=== PATIENT | male | born 1995 | race Caucasian/White ===

== ENCOUNTER 2018-07-14 15:31 | Emergency (ER) | payer SELFPAY ==
[2018-07-14] MEDS ORDERED: LIDOCAINE 1% MPF 5 ML VIAL ONE (16:22)
[2018-07-14] MEDS ORDERED: TETANUS & DIPHTHERIA TOX,ADULT 0.5 ML VIAL ONE (16:24)
[2018-07-14] MEDS ORDERED: LIDOCAINE 1% W/EPI 1:100,000 MDV 50 ML VIAL ONE (16:24)
--- NOTE | 2018-07-14 17:18 | RAD REPORT ---
EXAM DESCRIPTION: RAD - Tib Fib Right - 07/14/2018 5:01 pm CLINICAL HISTORY: Leg trauma, soft tissue laceration COMPARISON: None. FINDINGS: Soft tissue wound is present anterior to the midshaft tibia. On 1 of the lateral views the re is a small oval density in the soft tissues. This is not seen on the other lateral view and neithe r of the frontal projections. Foreign body is doubtful. No fracture identified. No acute bone or joint finding. IMPRESSION: No fracture or other acute bone finding. Anterior soft tissue wound with no foreign body confirmed.
--- NOTE | 2018-07-14 18:10 | EDPHYS ---
Physician Documentation [facility] Name: Fan Richards Age: 22 yrs Sex: Male : 1995 Arrival Date: 07/14/2018 Time: 15:35 Bed 19 Private MD: None, None ED Physician Vikas Brito HPI: 07/14 16:15 This 22 yrs old Male presents to ER via Wheelchair with complaints of cp Laceration To Leg. 16:15 The patient has a laceration occurred outdoors, The injury was accidental, Patient cp reports he was chopping wood when he accidently struck lower right leg with ax. The laceration(s) is(are) located on the anterior aspect right lower leg. Onset: The symptoms/episode began/occurred just prior to arrival. Associated signs and symptoms: Pertinent negatives: heavy bleeding, numbness distal to injury, suspected foreign body. Historical: - Allergies: 16:04 No Known Allergies; sv - Home Meds: 16:04 None [Active]; sv - PMHx: 16:04 None; sv - PSHx: 16:04 None; sv - Immunization history:: Adult Immunizations up to date, Last tetanus immunization: unknown. - Social history:: Smoking status: Patient/guardian denies using tobacco, Patient/guardian denies using alcohol. - Ebola Screening: : No symptoms or risks identified at this time. ROS: 16:20 Constitutional: Negative for body aches, chills, fever, poor PO intake. cp 16:20 Eyes: Negative for injury, pain, redness, and discharge. cp 16:20 ENT: Negative for drainage from ear(s), ear pain, sore throat, difficulty swallowing, difficulty handling secretions. 16:20 Cardiovascular: Negative for chest pain, edema, palpitations. 16:20 Respiratory: Negative for cough, shortness of breath, wheezing. 16:20 Abdomen/GI: Negative for abdominal pain, nausea, vomiting, and diarrhea. 16:20 Skin: Positive for laceration(s), of the anterior aspect right lower leg. 16:20 Neuro: Negative for altered mental status, numbness, weakness. 16:20 All other systems are negative. Exam: 16:45 Constitutional: The patient appears in no acute distress, alert, awake, well developed, cp well nourished. 16:45 Head/Face: Normocephalic, atraumatic. cp 16:45 Eyes: Periorbital structures: appear normal, Conjunctiva: normal, no exudate, no injection, Lids and lashes: appear normal, bilaterally. 16:45 ENT: External ear(s): are unremarkable, Nose: is normal, Mouth: is normal, Posterior pharynx: is normal, airway is patent. 16:45 Chest/axilla: Inspection: normal, Palpation: is normal, no crepitus, no tenderness. 16:45 Cardiovascular: Rate: normal, Rhythm: regular. 16:45 Respiratory: the patient does not display signs of respiratory distress, Respirations: normal, no use of accessory muscles, no retractions, no splinting, no tachypnea, Breath sounds: are clear throughout, no decreased breath sounds, no stridor, no wheezing. 16:45 Abdomen/GI: Exam negative for discomfort, distension, guarding, Inspection: abdomen appears normal. 16:45 Back: pain, is absent, ROM is normal. 16:45 Musculoskeletal/extremity: ROM: full active range of motion, in the right ankle and foot, limited active range of motion due to pain, in the right foot, Perfusion: the extremity is normally perfused throughout, Sensation intact. Tendon exam: specific tendon testing normal through active and passive range of motion 16:45 Skin: injury, laceration(s), the wound is approximately 5 cm(s), of the anterior aspect right lower leg, that can be described as no foreign body, linear, with mild bleeding. Vital Signs: 15:55 BP 136 / 96; Pulse 65; Resp 18; Temp 98.5; Pulse Ox 98% ; Weight 74.84 kg; Height 5 ft. sv 8 in. (172.72 cm); 18:32 BP 133 / 75; Pulse 59; Resp 18; Temp 98.4; Pulse Ox 100% on R/A; gm 15:55 Body Mass Index 25.09 (74.84 kg, 172.72 cm) sv Laceration: 18:06 Wound Repair of 5cm ( 2.0in ) subcutaneous laceration to anterior aspect right lower cp leg. Linear shaped.. Distal neuro/vascular/tendon intact. Anesthesia: Wound infiltrated with 14 mls of Lido/Marcaine. Wound prep: Extensive cleansing by me, Wound irrigation by me, Wound explored extensively. Fascia closed with 8 4-0 Vicryl using simple sutures and sterile technique. Skin closed with 6 4-0 Prolene using horizontal mattress sutures and sterile technique. Dressed with Bacitracin, 4x4's, bhavesh wrap. Patient tolerated well. MDM: 15:55 Patient medically screened. cp 16:30 Differential diagnosis: superficial laceration, tendon injury, vascular injury. cp 18:08 Data reviewed: vital signs, nurses notes, radiologic studies, plain films. cp 18:08 Test interpretation: by ED physician or midlevel provider: plain radiologic studies. cp Counseling: I had a detailed discussion with the patient and/or guardian regarding: the historical points, exam findings, and any diagnostic results supporting the discharge/admit diagnosis, radiology results, the need for outpatient follow up, a family practitioner, to return to the emergency department if symptoms worsen or persist or if there are any questions or concerns that arise at home. Response to treatment: the patient's symptoms have markedly improved after treatment. 07/14 16:05 Order name: XRAY Tib Fib RIGHT; Complete Time: 18:02 07/14 18:03 Interpretation: Report reviewed. 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 Exp: sv 09/03/2020. Lot #: [id number]. } Route: IM; Site: right deltoid; 16:36 Follow up: Response: No adverse reaction sv 16:37 Drug: Lidocaine-Epinephrine -1%: (1:100,000) 5 ml {Note: given to Siddhartha PA .} Volume: sv 20 ml; Route: Infiltration; 16:37 Drug: Marcaine-Epinephrine (0.5 %) 5 ml {Note: given to Siddhartha PA.} Route: Infiltration; sv Disposition: 07/15 07:43 Co-signature as Attending Physician, Vikas Brito MD I agree with the assessment and kdr plan of care. Disposition: 07/14/18 18:09 Discharged to Home. Impression: Laceration without foreign body of lower leg - Right. - Condition is Stable. - Discharge Instructions: Laceration Care, Adult. - Prescriptions for Keflex 500 mg Oral Capsule - take 1 capsule by ORAL route every 8 hours for 10 days; 30 capsule. Tylenol- Codeine #3 300-30 mg Oral Tablet - take 2 tablets by ORAL route every 6 hours As needed; 12 tablet. Ibuprofen 800 mg Oral Tablet - take 1 tablet by ORAL route every 8 hours As needed take with food; 30 tablet. - Medication Reconciliation Form, Thank You Letter, Antibiotic Education, Prescription Opioid Use form. - Follow up: Private Physician; When: 10 - 14 days; Reason: Staple/Suture removal. - Problem is new. - Symptoms have improved. Signatures: Dispatcher [employer] Mylene Reece RN RN Vikas Almonte MD MD [facility] Siddhartha Rubio PA PA cp Corrections: (The following items were deleted from the chart) 07/14 18:07 18:05 Dressing - Wound ordered. cp sv 18:38 18:09 07/14/2018 18:09 Discharged to Home. Impression: Laceration without foreign body sv of lower leg - Right. Condition is Stable. Forms are Medication Reconciliation Form, Thank You Letter, Antibiotic Education, Prescription Opioid Use. Follow up: Private Physician; When: 10 - 14 days; Reason: Staple/Suture removal. Problem is new. Symptoms have improved. cp
--- NOTE | 2018-07-14 18:10 | ER ---
Nurse's Notes [facility] Name: Fan Richards Age: 22 yrs Sex: Male : 1995 Arrival Date: 07/14/2018 Time: 15:35 Bed 19 Private MD: None, None Diagnosis: Laceration without foreign body of lower leg-Right Presentation: 07/14 15:55 Presenting complaint: Patient states: laceration to the RLE with an axe, full thickness sv as reported by Rosalia Talley RN. Denies LOC. Transition of care: patient was not received from another setting of care. Complicating Factors: There are no complicating factors for this patient. Onset of symptoms was July 14, 2018. Risk Assessment: Do you want to hurt yourself or someone else? Patient reports no desire to harm self or others. Initial Sepsis Screen: Does the patient meet any 2 criteria? No. Patient's initial sepsis screen is negative. Does the patient have a suspected source of infection? No. Patient's initial sepsis screen is negative. Care prior to arrival: None. 15:55 Method Of Arrival: Wheelchair sv 15:55 Acuity: DAYSI 3 sv Historical: - Allergies: 16:04 No Known Allergies; sv - Home Meds: 16:04 None [Active]; sv - PMHx: 16:04 None; sv - PSHx: 16:04 None; sv - Immunization history:: Adult Immunizations up to date, Last tetanus immunization: unknown. - Social history:: Smoking status: Patient/guardian denies using tobacco, Patient/guardian denies using alcohol. - Ebola Screening: : No symptoms or risks identified at this time. Screenin:55 Abuse screen: Denies threats or abuse. Denies injuries from another. Nutritional sv screening: No deficits noted. Tuberculosis screening: No symptoms or risk factors identified. Fall Risk None identified. Assessment: 16:10 General: Appears in no apparent distress. uncomfortable, slender, well developed, sv Behavior is calm, cooperative, appropriate for age. Pain: Complains of pain in right leg. Neuro: Level of Consciousness is awake, alert, obeys commands, Oriented to person, place, time, situation, Moves all extremities. Full function Gait is steady, Speech is normal. Respiratory: Airway is patent Respiratory effort is even, unlabored, Respiratory pattern is regular, symmetrical. Derm: Skin is pink, warm \T\ dry. Musculoskeletal: Range of motion: intact in all extremities. Injury Description: Laceration sustained to right killian is contaminated, 2.6 to 7.5 cm long, was sustained 30-60 minutes ago. is bleeding a small amount. 17:10 Reassessment: Patient appears in no apparent distress at this time. No changes from sv previously documented assessment. Patient and/or family updated on plan of care and expected duration. Pain level reassessed. Patient is alert, oriented x 3, equal unlabored respirations, skin warm/dry/pink. 18:37 Reassessment: Patient appears in no apparent distress at this time. Patient and/or sv family updated on plan of care and expected duration. Pain level reassessed. Patient is alert, oriented x 3, equal unlabored respirations, skin warm/dry/pink. Patient denies pain at this time. Patient states feeling better. Patient states symptoms have improved. Vital Signs: 15:55 BP 136 / 96; Pulse 65; Resp 18; Temp 98.5; Pulse Ox 98% ; Weight 74.84 kg; Height 5 ft. sv 8 in. (172.72 cm); 18:32 BP 133 / 75; Pulse 59; Resp 18; Temp 98.4; Pulse Ox 100% on R/A; gm 15:55 Body Mass Index 25.09 (74.84 kg, 172.72 cm) sv ED Course: 15:35 Patient arrived in ED. mr 15:36 None, None is Private Physician. mr 15:55 Siddhartha Rubio PA is PHCP. cp 15:55 Vikas Brito MD is Attending Physician. cp 15:55 Patient has correct armband on for positive identification. Bed in low position. Call light in reach. Door closed. Head of bed elevated. 15:55 Arm band placed on. sv 16:01 Mylene Bray, EUSEBIO is Primary Nurse. sv 16:03 Triage completed. sv 16:34 X-ray(s) taken. sv 16:52 Irrigation of laceration on right killian irrigated with normal saline Hibiclens solution sv Patient tolerated well. 17:02 XRAY Tib Fib RIGHT In Process Unspecified. EDMS 17:30 Assist provider with laceration repair on right killian that was between 2.6 to 7.5 cm sv using sutures. Set up tray. Performed by Siddhartha RUIZ Patient tolerated well. 18:07 Dressings: Kerlix X 1; right killian non-adherent dressing x 1 right killian 4X4s X 1; right sv killian. 18:37 Patient did not have IV access during this emergency room visit. 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 Exp: sv 09/03/2020. Lot #: [id number]. } Route: IM; Site: right deltoid; 16:36 Follow up: Response: No adverse reaction sv 16:37 Drug: Lidocaine-Epinephrine -1%: (1:100,000) 5 ml {Note: given to Siddhartha RUIZ .} Volume: sv 20 ml; Route: Infiltration; 16:37 Drug: Marcaine-Epinephrine (0.5 %) 5 ml {Note: given to Siddhartha RUIZ.} Route: Infiltration; sv Outcome: 18:09 Discharge ordered by . cp 18:37 Discharged to home ambulatory, with crutches, with family. sv 18:37 Condition: stable 18:37 Discharge instructions given to patient, Instructed on discharge instructions, follow up and referral plans. no drinking with medication, no driving heavy equipment, medication usage, crutch walking, wound care, Demonstrated understanding of instructions, follow-up care, medications, wound care, crutch walking, Prescriptions given X 3. 18:38 Patient left the ED. sv Signatures: Dispatcher [employer] Mylene Reece RN RN sv Rivera, Mary mr Page, Corey, PA PA cp Moya, Gabriella
== END 2018-07-14 18:38 | disposition home or self-care (01) ==
LOC: ER 15:31
PROC: 0JQN0ZZ Repair Right Lower Leg Subcutaneous Tissue and Fascia, Open Approach (ICD-10-PCS; principal; 2018-07-14)
DX: S81.811A Laceration without foreign body, right lower leg, initial encounter (principal); W27.0XXA Contact with workbench tool, initial encounter; Y93.89 Activity, other specified; Y92.89 Other specified places as the place of occurrence of the external cause; Z23 Encounter for immunization
CPT/HCPCS: 90714; 99284

== ENCOUNTER 2024-02-08 07:09 | Emergency (ER) | payer OTHER, SELFPAY ==
--- OUTSIDE RECORDS SUMMARY | 2024-02-08 07:11 | XMS REPORT | Continuity of Care Document ---
Author Name Unknown Address [address] [place] [address] [employer] Address [address] [place] [address] Care Team Providers Care Data Migration Consultant Name Role Phone Unavailable Unavailable Unavailable
[2024-02-08] MEDS ORDERED: AMOX/K CLAV 875 MG TAB ONE (07:52)
--- NOTE | 2024-02-08 08:29 | RAD REPORT ---
EXAM DESCRIPTION: RAD - Elbow Right 3 View - 02/08/2024 8:12 am CLINICAL HISTORY: PAIN COMPARISON: No comparisons TECHNIQUE: Right elbow, 3 views. FINDINGS: No fracture is identified. No elevated posterior fat pad to suggest an effusion. There is no dislocation or periosteal reaction noted. Soft tissue defect with swelling and superficia l gas along the volar aspect of the forearm near the antecubital fossa. No foreign body. IMPRESSION: Soft tissue abnormalities as above. No acute osseus abnormality.
--- NOTE | 2024-02-08 08:32 | ER ---
Nurse's Notes [facility] Name: Fan Richards Age: 28 yrs Sex: Male : 1995 Arrival Date: 02/08/2024 Time: 07:09 Bed 12 Private MD: Diagnosis: Arm Laceration Right/Open wound forearm;Dog bite Presentation: 02/07 07:28 Chief complaint: Patient states: His dog accidentally bit his R FA. Dressing in place. ll1 Coronavirus screen: Client denies travel out of the [place] in the last 14 days. At this time, the client does not indicate any symptoms associated with coronavirus-19. Ebola Screen: Patient denies travel to an Ebola-affected area in the 21 days before illness onset. Initial Sepsis Screen: Does the patient meet any 2 criteria? No. Patient's initial sepsis screen is negative. Does the patient have a suspected source of infection? No. Patient's initial sepsis screen is negative. Risk Assessment: Do you want to hurt yourself or someone else? Patient reports no desire to harm self or others. Onset of symptoms was February 08, 2024. 07:28 Method Of Arrival: Ambulatory 1 07:28 Acuity: DAYSI 4 1 Triage Assessment: 07:30 Bite description: bite sustained to right arm by a dog, animal information: Appearance: ll1 appeared well, vaccination(s) is current. General: Appears in no apparent distress. Behavior is calm, cooperative, appropriate for age. Pain: Complains of pain in right arm Quality of pain is described as aching. Derm: Reports dog bite R FA. Musculoskeletal: Circulation, motion, and sensation intact. Capillary refill < 3 seconds. Historical: - Allergies: 08:00 No Known Allergies; ll1 - PMHx: 07:28 None; ll1 - PSHx: 07:28 None; ll1 - Immunization history:: Adult Immunizations up to date, Last tetanus immunization: up to date. - Infectious Disease History:: Denies. - Social history:: Smoking status: Patient denies any tobacco usage or history of. Screenin:58 [facility] ED Fall Risk Assessment (Adult) History of falling in the last 3 months, 1 including since admission No falls in past 3 months (0 pts) Confusion or Disorientation No (0 pts) Intoxicated or Sedated No (0 pts) Impaired Gait No (0 pts) Mobility Assist Device Used No (0 pt) Altered Elimination No (0 pt) Score/Fall Risk Level 0 - 2 = Low Risk Maintained a safe environment, Hourly rounding (assess needs \T\ fall precautionary measures) done. Abuse screen: Denies threats or abuse. Nutritional screening: No deficits noted. Tuberculosis screening: No symptoms or risk factors identified. Assessment: 07:56 General: Appears uncomfortable, Behavior is calm, cooperative, appropriate for age. ll1 Pain: Complains of pain in right arm Quality of pain is described as aching, throbbing. Derm: Reports 6 lacerations from dog bite to R FA. Musculoskeletal: Circulation, motion, and sensation intact. Capillary refill < 3 seconds. 08:43 Reassessment: No changes from previously documented assessment. Patient and/or family ll1 updated on plan of care and expected duration. Pain level reassessed. Patient is alert, oriented x 3, equal unlabored respirations, skin warm/dry/pink. 08:43 Derm: Skin is intact, Skin is pink, warm \T\ dry. ll1 Vital Signs: 07:28 BP 154 / 90; Pulse 67; Resp 16; Pulse Ox 97% ; Pain 5/10; ll1 08:43 BP 145 / 87; Pulse 66; Resp 16; Temp 97.4; Pulse Ox 97% ; Pain 5/10; ll1 07:28 Pain Scale: Adult ll1 08:43 Pain Scale: Adult ll1 ED Course: 07:11 Patient arrived in ED. rg4 07:13 Archie Campbell DO is Attending Physician. ms3 07:28 Arm band placed on Patient placed in an exam room, on a stretcher. ll1 07:30 Triage completed. ll1 07:45 Irrigation of laceration on right arm irrigated with normal saline Betadine solution ll1 Patient tolerated well. 08:00 Jordi Rodriguez, EUSEBIO is Primary Nurse. ll1 08:10 [facility] animal control Radha contacted and reported dog bite. ll1 08:14 Elbow Right 3 View XRAY In Process Unspecified. EDMS 08:43 No provider procedures requiring assistance completed. Patient did not have IV access ll1 during this emergency room visit. 08:44 Patient has correct armband on for positive identification. Bed in low position. ll1 Provided Education on: finish all prescribed antibiotics. Cardiac monitoring not applicable on this patient. Administered Medications: 07:56 Drug: Amoxicillin-Clavulanate PO 875 mg PO once Route: PO; 1 08:45 Follow up: Response: No adverse reaction ll1 Medication: 07:59 VIS not applicable for this client. 1 Outcome: 08:32 Discharge ordered by MD. ms3 08:44 Discharged to home ambulatory, ll1 08:44 Condition: stable 08:44 Discharge instructions given to patient, family, Instructed on discharge instructions, follow up and referral plans. medication usage, wound care, Demonstrated understanding of instructions, follow-up care, medications, wound care, Prescriptions given X 1, 08:47 Patient left the ED. 1 Signatures: Dispatcher [employer] EDMariaelena Mcclellan rg4 Jordi Rodriguez RN RN ll1 Archie Campbell DO DO ms3
--- NOTE | 2024-02-08 08:33 | EDPHYS ---
Physician Documentation [facility] Name: Fan Richards Age: 28 yrs Sex: Male : 1995 Arrival Date: 02/08/2024 Time: 07:09 Bed 12 Private MD: ED Physician Archie Campbell HPI: 02/07 07:52 This 28 yrs old Male presents to ER via Ambulatory with complaints of Dog Bite. ms3 07:52 28-year-old male with no past medical history presents to the emergency department 1 ms3 hour status post dog bite. Patient states he was playing with his dog this morning and lifted the rope away from him and the dog bit his right forearm. He states his dog's vaccines are up-to-date. He describes his pain as a 5/10. Patient denies any alleviating factors.. Historical: - Allergies: 08:00 No Known Allergies; ll1 - PMHx: 07:28 None; ll1 - PSHx: 07:28 None; ll1 - Immunization history:: Adult Immunizations up to date, Last tetanus immunization: up to date. - Infectious Disease History:: Denies. - Social history:: Smoking status: Patient denies any tobacco usage or history of. ROS: 07:52 Constitutional: Negative for fever, and chills. Neck: Negative for injury, pain, and ms3 swelling, Cardiovascular: Negative for chest pain, and palpitations. Respiratory: Negative for shortness of breath, cough, wheezing, and pleuritic chest pain, Abdomen/GI: Negative for abdominal pain, nausea, vomiting, diarrhea, and constipation, 07:52 Skin: Positive for laceration(s), Exam: 07:52 Constitutional: This is a well developed, well nourished patient who is awake, alert, ms3 and in no acute distress. Head/Face: Normocephalic, atraumatic. Neck: Trachea midline, no cervical lymphadenopathy. Supple, full range of motion without nuchal rigidity, or vertebral point tenderness. No Meningismus. Chest/axilla: Normal chest wall appearance and motion. Nontender with no deformity. Cardiovascular: Regular rate and rhythm with a normal S1 and S2. No gallops, murmurs, or rubs. Normal PMI, no JVD. No pulse deficits. Respiratory: Lungs have equal breath sounds bilaterally, clear to auscultation and percussion. No rales, rhonchi or wheezes noted. No increased work of breathing, no retractions or nasal flaring. Abdomen/GI: Soft, non-tender, with normal bowel sounds. No distension or tympany. No guarding or rebound. No evidence of tenderness throughout. 07:52 Skin: injury, laceration(s), 2 lacerations on the dorsal and 2 lacerations on the ventral surface of right forearm. Wounds hemostatic, Vital Signs: 07:28 BP 154 / 90; Pulse 67; Resp 16; Pulse Ox 97% ; Pain 5/10; ll1 08:43 BP 145 / 87; Pulse 66; Resp 16; Temp 97.4; Pulse Ox 97% ; Pain 5/10; ll1 07:28 Pain Scale: Adult ll1 08:43 Pain Scale: Adult ll1 MDM: 07:33 Patient medically screened. ms3 07:52 Differential diagnosis: Dog bite versus laceration versus radiopaque foreign body. ms3 Rabies Status: Rabies immunization is not indicated. ED course: Discussed suturing lacerations with patient's. Patient declined sutures stating he only wants the wounds washed out. 16:11 Data reviewed: vital signs, nurses notes, and as a result, I will discharge patient. I ms3 considered the following discharge prescriptions or medication management in the emergency department Medications were administered in the Emergency Department. See MAR. Independent interpretation of the following test(s) in the Emergency Department X-Ray: My interpretation is Right elbow x-ray images reviewed do not reveal radiopaque foreign body. Counseling: I had a detailed discussion with the patient and/or guardian regarding the historical points, exam findings, and any diagnostic results supporting the discharge/admit diagnosis, radiology results, the need for outpatient follow up, to return to the emergency department if symptoms worsen or persist or if there are any questions or concerns that arise at home. ED course: Discussed laceration repair of wounds and patient declines. Discussed healing by secondary intention with patient. Patient to follow-up with primary care physician in 2 to 3 days. Patient understands and agrees with plan. All questions were answered. Return precautions discussed to include worsening symptoms, or any other concerns. 02/07 07:33 Order name: Elbow Right 3 View XRAY; Complete Time: 08:30 ms3 Administered Medications: 07:56 Drug: Amoxicillin-Clavulanate PO 875 mg PO once Route: PO; ll1 08:45 Follow up: Response: No adverse reaction ll1 Disposition Summary: 02/08/24 08:32 Discharge Ordered Notes: Location: Home ms3 Condition: Stable ms3 Diagnosis - Arm Laceration Right/Open wound forearm ms3 - Dog bite ms3 Followup: ms3 - With: Private Physician - When: 2 - 3 days - Reason: Recheck today's complaints Discharge Instructions: - Discharge Summary Sheet ms3 - Animal Bite, Adult, [id number] ms3 Forms: - Medication Reconciliation Form ms3 - Antibiotic Education ms3 - Prescription Opioid Use ms3 - Patient Portal Instructions ms3 - Leadership Thank You Letter ms3 Prescriptions: - Augmentin 875-125 mg Oral Tablet - take 1 tablet ORAL route every 12 hours for 10 days; 20 tablet; Refills: 0, ms3 Product Selection Permitted Signatures: Dispatcher [employer] Jordi Kenney RN RN ll1 Archie Campbell DO DO ms3 Corrections: (The following items were deleted from the chart) 07:33 07:33 Elbow Right 3 View+RAD.RAD.BRZ ordered. EDMS EDMS
[2024-02-08 12:08] VITALS: BP 154/90; TEMP 97.4; O2SAT 97
== END 2024-02-08 08:47 | disposition home or self-care (01) ==
LOC: ER 07:09
DX: S51.811A Laceration without foreign body of right forearm, initial encounter (principal); W54.0XXA Bitten by dog, initial encounter

== ENCOUNTER 2024-02-22 22:07 | Emergency (ER) | payer SELFPAY ==
--- OUTSIDE RECORDS SUMMARY | 2024-02-22 22:10 | XMS REPORT | Continuity of Care Document ---
Author Name Unknown Address [address] [place], [place] [address]ect Address [address] [place] [id number] Care Team Providers Care Production Director Name Role Phone Unavailable Unavailable Unavailable
[2024-02-22] MEDS ORDERED: NA CHLORIDE 0.9% 1,000 ML ONE (22:55)
[2024-02-22] MEDS ORDERED: ONDANSETRON 4 MG/2 ML VIAL ONE (22:55)
[2024-02-23 00:03] LABS: Absolute Eosinophils 0.1 K/uL (0-0.5); Absolute Lymphocytes (CBC) 2.2 K/uL (0.7-4.9); Absolute Monocytes 1.2 K/uL (0.1-1.3); Absolute Neutrophil 12.6 K/uL (1.8-8.0); Basophils % 0.3 % (0-1.3); Eosinophils % 0.8 % (0-4.4); Hematocrit 47.9 % (39.6-49.0); Lymphocytes % 13.6 % (15.3-44.8); MCH 31.7 pg (27.0-35.0); MCHC 35.4 g/dL (32.0-36.0); MCV 89.6 fL (80-100); MPV 7.8 fL (7.6-11.3); Monocytes % 7.4 % (3.3-12.3); Neutrophils % 77.9 % (41.7-73.7); Nucleated Red Blood Cells % 0.1 % (0-0); Platelets 244 thou/uL (152-406); RBC Red Blood Cell Count 5.34 M/uL (4.33-5.43)
[2024-02-23 00:07] LABS: Albumin/Globulin Ratio 1.5 (1.1-1.8); Anion Gap 14.3 mEq/L (5.0-15.0); Bilirubin Total 0.9 mg/dL (0.2-1.0); Globulin 3.3 g/dL (2.3-3.5); Magnesium 2.1 mg/dL (1.6-2.4); Potassium 3.3 mEq/L (3.5-5.1); Protein, Total 8.3 g/dL (6.4-8.2)
--- NOTE | 2024-02-23 00:38 | EDPHYS ---
Physician Documentation [facility] Name: Fan Richards Age: 28 yrs Sex: Male : 1995 Arrival Date: 02/22/2024 Time: 22:07 Bed DX3 Private MD: ED Physician Catrina Rangel HPI: 02/21 22:33 This 28 yrs old Male presents to ER via EMS with complaints of Heat Exposure. cp 22:33 body cramps started after taking shower tonight. 1 episode of vomiting. Reports worked cp outside all day today. Historical: - Allergies: 22:24 No Known Allergies; vc1 - Home Meds: 22:24 None [Active]; vc1 - PMHx: 22:24 None; vc1 - PSHx: 22:24 None; vc1 - Infectious Disease History:: Denies. - Social history:: Smoking status: Patient denies any tobacco usage or history of. ROS: 22:35 Constitutional: Positive for generalized cramping, Negative for fever, cp 22:35 Eyes: Negative for injury, pain, redness, and discharge, cp 22:35 ENT: Negative for drainage from ear(s), ear pain, sore throat, difficulty swallowing, difficulty handling secretions, 22:35 Cardiovascular: Negative for chest pain, 22:35 Respiratory: Negative for cough, shortness of breath, wheezing, 22:35 Abdomen/GI: Positive for nausea, vomiting, Negative for abdominal pain, diarrhea, 22:35 Back: Negative for pain at rest, pain with movement, 22:35 Neuro: Negative for altered mental status, dizziness, headache, loss of consciousness, syncope, 22:35 All other systems are negative, Exam: 22:40 Constitutional: The patient appears in no acute distress, alert, awake, comfortable, cp non-diaphoretic, non-toxic, well developed, well nourished, 22:40 Head/Face: Normocephalic, atraumatic. cp 22:40 Eyes: Periorbital structures: appear normal, Conjunctiva: normal, no exudate, no injection, Sclera: no appreciated abnormality, Lids and lashes: appear normal, bilaterally, 22:40 ENT: External ear(s): are unremarkable, Nose: is normal, Mouth: Lips: moist, Oral mucosa: pink and intact, moist, Posterior pharynx: Airway: no evidence of obstruction, patent, 22:40 Chest/axilla: Inspection: normal, 22:40 Cardiovascular: Rate: normal, Rhythm: regular, 22:40 Respiratory: the patient does not display signs of respiratory distress, Respirations: normal, no use of accessory muscles, no retractions, labored breathing, is not present, Breath sounds: are clear throughout, no decreased breath sounds, no stridor, no wheezing, 22:40 Abdomen/GI: Inspection: abdomen appears normal, Palpation: abdomen is soft and non-tender, in all quadrants, 22:40 Neuro: Orientation: to person, place \T\ time. Mentation: is normal, Cerebellar function: is grossly normal, Motor: moves all fours, strength is normal, Sensation: is normal, Vital Signs: 22:20 BP 140 / 89; Pulse 81; Resp 17; Temp 97.3; Pulse Ox 98% on R/A; Weight 77.11 kg; Height vk 5 ft. 8 in. ; 22:20 Body Mass Index 25.85 (77.11 kg, 172.72 cm) vk MDM: 22:22 Patient medically screened. 02/22 00:35 Data reviewed: vital signs, nurses notes, lab test result(s). cp 00:35 Differential diagnosis: dehydration, electrolyte abnormality, liver disease. I cp considered the following discharge prescriptions or medication management in the emergency department Medications were administered in the Emergency Department. See MAR. Counseling: I had a detailed discussion with the patient and/or guardian regarding the historical points, exam findings, and any diagnostic results supporting the discharge/admit diagnosis, lab results, patient declined US of liver/gallbladder. Requests discharge to home. 02/21 22:29 Order name: CBC with Diff; Complete Time: 00:30 02/22 00:30 Interpretation: Normal except: WBC 16.20; SANDRA% 77.9; LYM% 13.6; NEUT A 12.6. 02/21 22:29 Order name: CMP; Complete Time: 00:30 cp 02/22 00:30 Interpretation: Normal except: NA 128; K 3.3; CL 95; BUN 29; GFR 87; AST 53; ALT 99; TP cp 8.3. 02/21 22:29 Order name: Urinalysis w/ reflexes 02/21 22: Order name: Magnesium; Complete Time: 00:30 cp 02/21 22:29 Order name: CK; Complete Time: 00:30 cp 02/22 00:30 Interpretation: Abnormal: CPK 711. cp 02/21 22:29 Order name: IV Saline Lock; Complete Time: 23:04 cp 02/21 22:29 Order name: Labs collected and sent; Complete Time: 23:04 cp 02/22 00:31 Order name: PO challenge; Complete Time: 01:05 cp Administered Medications: 02/21 22:57 Drug: NS 0.9% IV 1000 ml IV at 1 bolus Per protocol; 1000 mL bolus Route: IV; Rate: 1 vc1 bolus; Site: left antecubital; 02/22 01:05 Follow up: IV Status: Completed infusion; IV Intake: 1000ml vc1 02/21 22:57 Drug: Ondansetron IVP 4 mg IVP once; over 2 minutes Route: IVP; Site: left antecubital; vc1 02/22 01:05 Follow up: Response: No adverse reaction; Marked relief of symptoms vc1 Disposition Summary: 02/23/24 00:37 Discharge Ordered Notes: Location: Home cp Problem: new cp Symptoms: have improved cp Condition: Stable cp Diagnosis - Heat exhaustion, unspecified cp - Nausea with vomiting, unspecified cp Followup: cp - With: Private Physician - When: 2 - 3 days - Reason: Recheck today's complaints Discharge Instructions: - Discharge Summary Sheet cp - Nausea and Vomiting, Adult cp - Heat Exhaustion cp - Preventing Heat Exhaustion, Adult cp Forms: - Medication Reconciliation Form cp - Antibiotic Education cp - Prescription Opioid Use cp - Patient Portal Instructions cp - Leadership Thank You Letter cp Prescriptions: - Zofran 4 mg Oral Tablet - take 1 tablet ORAL route every 12 hours As needed; 20 tablet; Refills: 0, cp Product Selection Permitted Signatures: Dispatcher [email or web address] EDMS Siddhartha Rubio PA PA cp Calcote, Vanessa RN RN vc1
--- NOTE | 2024-02-23 00:38 | ER ---
Nurse's Notes [facility] Name: Fan Richards Age: 28 yrs Sex: Male : 1995 Arrival Date: 02/22/2024 Time: 22:07 Bed DX3 Private MD: Diagnosis: Heat exhaustion, unspecified;Nausea with vomiting, unspecified Presentation: 02/21 22:19 Chief complaint: EMS states: taking a shower and cramped up all over, vomited when we vc1 pulled up. Coronavirus screen: Client denies travel out of the [place] in the last 14 days. At this time, the client does not indicate any symptoms associated with coronavirus-19. Ebola Screen: Patient negative for fever greater than or equal to 101.5 degrees Fahrenheit, and additional compatible Ebola Virus Disease symptoms Patient denies exposure to infectious person. Patient denies travel to an Ebola-affected area in the 21 days before illness onset. No symptoms or risks identified at this time. Initial Sepsis Screen: Does the patient meet any 2 criteria? No. Patient's initial sepsis screen is negative. Does the patient have a suspected source of infection? No. Patient's initial sepsis screen is negative. Risk Assessment: Do you want to hurt yourself or someone else? Patient reports no desire to harm self or others. Onset of symptoms was February 22, 2024. 22:19 Method Of Arrival: EMS: [facility] vc1 22:19 Acuity: [facility]SI 3 vc1 Historical: - Allergies: 22:24 No Known Allergies; vc1 - Home Meds: 22:24 None [Active]; vc1 - PMHx: 22:24 None; vc1 - PSHx: 22:24 None; vc1 - Infectious Disease History:: Denies. - Social history:: Smoking status: Patient denies any tobacco usage or history of. Screenin:24 [facility] ED Fall Risk Assessment (Adult) History of falling in the last 3 months, vc1 including since admission No falls in past 3 months (0 pts) Confusion or Disorientation No (0 pts) Intoxicated or Sedated No (0 pts) Impaired Gait No (0 pts) Mobility Assist Device Used No (0 pt) Altered Elimination No (0 pt) Score/Fall Risk Level 0 - 2 = Low Risk Oriented to surroundings, Maintained a safe environment, Educated pt \T\ family on fall prevention, incl call for assistance when getting out of bed. Abuse screen: Denies threats or abuse. Nutritional screening: No deficits noted. Tuberculosis screening: No symptoms or risk factors identified. Assessment: 02/22 01:06 General: Appears in no apparent distress. uncomfortable, ill, slender, Behavior is vc1 calm, cooperative, appropriate for age. Pain: Complains of pain in CRAMPING ALL OVER Quality of pain is described as crampy, Pain began suddenly, Is continuous, Noted to be resistant to movement, Also complains of nausea. Neuro: Level of Consciousness is awake, obeys commands, lethargic, Oriented to person, place, time, situation, Appropriate for age. Cardiovascular: No deficits noted. Respiratory: Airway is patent Respiratory effort is even, unlabored, Respiratory pattern is regular, symmetrical, Breath sounds are clear bilaterally. Derm: Skin is intact, is healthy with good turgor, Skin is diaphoretic, Skin is normal, Skin temperature is hot. Vital Signs: 02/21 22:20 BP 140 / 89; Pulse 81; Resp 17; Temp 97.3; Pulse Ox 98% on R/A; Weight 77.11 kg; Height vk 5 ft. 8 in. ; 22:20 Body Mass Index 25.85 (77.11 kg, 172.72 cm) vk ED Course: 22:18 Patient arrived in ED. vc1 22:21 Triage completed. vc1 22:22 Siddhartha Rubio PA is PHCP. cp 22:22 Catrina Rangel MD is Attending Physician. cp 23:04 CBC with Diff Sent. vk 23:04 CMP Sent. vk 23:04 CK Sent. vk 23:04 Magnesium Sent. vk 23:04 Initial lab(s) drawn, by me, sent to lab. Maintain EMS IV. Good blood return noted. vk Site clean \T\ dry. Gauge \T\ site: left AC/ 20 gauge. 23:06 Warm blanket given. vk 02/22 01:05 No provider procedures requiring assistance completed. IV discontinued, intact, vc1 bleeding controlled, No redness/swelling at site. Pressure dressing applied. Administered Medications: 02/21 22:57 Drug: NS 0.9% IV 1000 ml IV at 1 bolus Per protocol; 1000 mL bolus Route: IV; Rate: 1 vc1 bolus; Site: left antecubital; 02/22 01:05 Follow up: IV Status: Completed infusion; IV Intake: 1000ml vc1 02/21 22:57 Drug: Ondansetron IVP 4 mg IVP once; over 2 minutes Route: IVP; Site: left antecubital; vc1 02/22 01:05 Follow up: Response: No adverse reaction; Marked relief of symptoms vc1 Medication: 01:05 VIS not applicable for this client. vc1 Intake: 01:05 IV: 1000ml; Total: 1000ml. vc1 Outcome: 00:37 Discharge ordered by MD. cordero 01:17 Discharged to home ambulatory, with family, vc1 01:17 Condition: good 01:17 Discharge instructions given to patient, Instructed on discharge instructions, follow up and referral plans. Demonstrated understanding of instructions, follow-up care, medications, Prescriptions given X 1, 01:17 Patient left the ED. vc1 Signatures: Siddhartha Rubio PA PA cp Calcote, Vanessa, RN RN vc1 Natalie Lucero Corrections: (The following items were deleted from the chart) 02/21 22:22 22:20 BP 140 / 89; Pulse 81bpm; Resp 17bpm; Pulse Ox 98% RA; Temp 97.3F; vk vk
[2024-02-23 01:15] LABS: Specific Gravity 1.008 (1.005-1.030); Urine Bilirubin NEGATIVE (Negative); Urine Blood Negative (Negative); Urine Clarity Clear (Clear); Urine Color Colorless (Yellow); Urine Glucose NEGATIVE (Negative); Urine Ketones 2+ (Negative); Urine Microscopic Reflex YN NO UMIC; Urine Nitrite NEGATIVE (Negative); Urine Protein NEGATIVE (Negative); Urine Urobilinogen Normal (Normal)
[2024-02-23 03:24] VITALS: BP 140/89; TEMP 97.3; O2SAT 98
== END 2024-02-23 01:17 | disposition home or self-care (01) ==
LOC: ER 22:07
DX: T67.5XXA Heat exhaustion, unspecified, initial encounter (principal)
CPT/HCPCS: 36415; 80053; 81003; 82550; 83735; 85025; 96361; 96374; 99284; J2405; J7030